=== PATIENT | female | born 1980 | race Two or more races ===

== ENCOUNTER 2023-08-21 13:50 | Emergency (ER) | payer OTHER ==
[~2023-08-21] VITALS: Ht 160 cm; Wt 70.0 kg
[2023-08-21] MEDS ORDERED: MORPHINE SULFATE 4 MG/ML SYR/VIAL IV ONE (14:00)
[2023-08-21] MEDS ORDERED: SODIUM CHLORIDE 0.9% 500 ML IVB ONE (14:00)
[2023-08-21] MEDS ORDERED: ONDANSETRON HCL 4 MG/2 ML VIAL IV ONE (14:00)
[2023-08-21 14:17] LABS: Basophils # (auto) 0 10 ^3/uL (0-0.2); Basophils % (auto) 0.4 % (0.0-2.0); Eosinophils # (auto) 0.1 10 ^3/uL (0-0.8); Eosinophils % (auto) 0.6 % (0.0-7.0); Hemoglobin 14.2 g/dL (12.2-16.2); Lymphocytes # (auto) 2.7 10 ^3/uL (0.4-5.4); Lymphocytes % (auto) 28.6 % (10.0-50.0); Mean Corpuscular Hemoglobin 29.6 pg (28.0-32.0); Mean Corpuscular Hgb Conc. 33.1 g/dL (32.0-36.0); Mean Corpuscular Volume 89.3 fL (80.0-100.0); Monocytes # (auto) 0.6 10 ^3/uL (0-1.3); Monocytes % (auto) 6.3 % (0.0-12.0); Neutrophils % (auto) 64.1 % (37.0-80.0); Nucleated Red Blood Cells % 0.1 %; Red Blood Cells 4.81 10^6/uL (4.0-5.20); Red Cell Distribution Width 13.6 % (11.8-14.3); White Blood Cell 9.3 10^3/uL (4.4-10.8)
[2023-08-21 14:33] LABS: Alanine Aminotransferase 14 U/L (7-40); Albumin 4.7 g/dL (3.2-4.8); Alkaline Phosphatase 55 U/L (46-116); Anion Gap 12 (5-15); Aspartate Aminotransferase 14 U/L (13-40); BUN/Creatinine Ratio 9.3 (10.0-20.0); Blood Urea Nitrogen 8 mg/dL (9-23); Calcium 9.1 mg/dL (8.7-10.4); Carbon Dioxide 18 mmol/L (20-30); Chloride 107 mmol/L (98-107); Glucose 99 mg/dL (74-106); Potassium 3.2 mmol/L (3.5-5.1); Sodium 137 mmol/L (136-145)
[2023-08-21 14:34] LABS: Bilirubin, Total 0.4 mg/dL (0.2-1.0); Total Protein 7.7 g/dL (5.7-8.2)
[2023-08-21 17:16] LABS: Urine Bacteria FEW /hpf (None Seen); Urine Blood 1+ /uL (Negative); Urine Clarity HAZY (Clear); Urine Color Yellow (Yellow); Urine Mucus FEW (None Seen); Urine Protein, UAD TRACE (Negative); Urine Specific Gravity 1.018 (1.001-1.035); Urine Urobilinogen Normal (Negative); Urine WBC 4 /hpf (0 - 5)
[2023-08-21] MEDS ORDERED: CIPR-173 PO (18:18)
[2023-08-21 18:46] VITALS: BP 132/86; PULSE 96; RESP 16; TEMP 98.2; O2SAT 98
== END 2023-08-21 18:59 | disposition home or self-care (01) ==
LOC: EDBD 13:50 → ER 13:50
DX: N39.0 Urinary tract infection, site not specified (principal); R10.32 Left lower quadrant pain; Z98.890 Other specified postprocedural states
CPT/HCPCS: 36415; 74176; 80053; 81001; 85025; 96361; 96374; 99285; J2405; J7040